=== PATIENT | female | born 2000 | race African-American/Black ===

== ENCOUNTER 2021-10-02 19:59 | Emergency (ER) | payer OTHER ==
[2021-10-02 21:07] LABS: BILIRUBIN,URINE NEGATIVE (NEGATIVE); GLUCOSE, URINE (UA) NEGATIVE (NEGATIVE); KETONES,URINE (UA) NEGATIVE (NEGATIVE); LEUKOCYTE ESTERASE, URINE NEGATIVE (NEGATIVE); NITRITE,URINE NEGATIVE (NEGATIVE); OCCULT BLOOD,URINE TRACE-INTA (NEGATIVE); PH,URINE 7.5 PH (5.0-7.5); PROTEIN,URINE NEGATIVE (NEGATIVE); UROBILINOGEN,URINE 1 (NORMAL) E.U./dL (NORMAL)
[2021-10-02 21:11] LABS: CLARITY,URINE CLOUDY (CLEAR); HCG UR QUAL NEGATIVE
[2021-10-02] MEDS ORDERED: LIDOCAINE 1% 2 ML VIAL MC ONE (21:17)
[2021-10-02] MEDS ORDERED: levonorgestreL 1.5 MG TABLET PO STA (21:17)
[2021-10-02] MEDS ORDERED: cefTRIAXone 500 MG VIAL IM STA (21:17)
[2021-10-02] MEDS ORDERED: AZITHROMYCIN 250 MG TABLET PO STA (21:17)
[2021-10-02 21:18] LABS: RBC,URINE 0-5 /HPF (0-5)
[2021-10-02] MEDS ORDERED: metroNIDAZOLE 250 MG TABLET PO STA (21:18)
[2021-10-02 21:19] LABS: AMORPHOUS SEDIMENT,UR Moderate /LPF; BACTERIA,URINE Rare /HPF (None Seen); SQUAMOUS EPITHELIAL CELL,UR RARE Squamous (<= Few)
[2021-10-02] MEDS ORDERED: RALTEGRAVIR 400 MG TABLET PO STA (21:19)
[2021-10-02] MEDS ORDERED: lamiVUDine/ZIDOVUDINE 150 MG/300 MG TABLET PO STA (21:20)
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
[2021-10-02] MEDS ORDERED: ONDANSETRON ODT 4 MG Prepack 2 TL STA (21:25)
[2021-10-02 21:47] VITALS: BP 125/62
[2021-10-03 00:14] LABS: BACTERIAL VAGINOSIS DNA POSITIVE (NEGATIVE); CANDIDA GLABRATA DNA NEGATIVE (NEGATIVE); CANDIDA GROUP DNA NEGATIVE (NEGATIVE); CANDIDA KRUSEI DNA NEGATIVE (NEGATIVE); TRICHOMONAS VAGINALIS DNA NEGATIVE (NEGATIVE)
[2021-10-03 01:33] LABS: CHLAMYDIA TRACHOMATIS DNA NEGATIVE (NEGATIVE); NEISSERIA GONORRHOEAE DNA NEGATIVE (NEGATIVE)
== END 2021-10-02 21:52 | disposition home or self-care (01) ==
LOC: ED 19:59
DX: T74.21XA Adult sexual abuse, confirmed, initial encounter (principal)
CPT/HCPCS: 81001; 81025; 81514; 87491; 87591; 96372; 99282; 99283; A9270; 81003; 87086; 87661

== ENCOUNTER 2022-09-03 13:15 | Outpatient (CLI) | payer OTHER ==
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
== END 2022-09-03 13:30 | disposition home or self-care (01) ==
LOC: DI.N 13:15
PROVIDERS: ATTEND Registered Nurse
DX: M43.6 Torticollis (principal)